=== PATIENT | female | born 1940 | race Caucasian/White ===

== ENCOUNTER 2019-03-29 05:43 | Emergency (ER) | payer MEDICARE ==
[~2019-03-29] VITALS: Ht 149.8 cm; Wt 75.3 kg
[~2019-03-29 05:43] MED LIST: ATENOLOL25 MG PO; KCL; METFORMIN HCL500 MG PO; PRAVASTATIN SOD10 MG PO
[2019-03-29] MEDS ORDERED: LEVOTHYROXINE50 MCG PO (05:58)
[2019-03-29] MEDS ORDERED: POTASSIUM CHLO20 ME4 PO (05:59)
[2019-03-29 06:59] VITALS: BP 159/63
== END 2019-03-29 06:57 | disposition short-term general hospital (02) ==
LOC: ED 05:43
DX: S06.4X0A Epidural hemorrhage without loss of consciousness, initial encounter (principal); M25.511 Pain in right shoulder; M25.512 Pain in left shoulder; R11.2 Nausea with vomiting, unspecified; Z79.899 Other long term (current) drug therapy; W18.39XA Other fall on same level, initial encounter; Y93.89 Activity, other specified; Y92.89 Other specified places as the place of occurrence of the external cause; Y99.8 Other external cause status

== ENCOUNTER 2023-04-10 20:30 | Emergency (ER) | payer MEDICARE ==
[~2023-04-10] VITALS: Ht 147.3 cm; Wt 70.3 kg
[~2023-04-10 20:30] MED LIST changes: +LEVOTHYROXINE50 MCG PO; +POTASSIUM CHLO20 ME4 PO
[2023-04-10 21:07] VITALS: BP 168/87
== END 2023-04-11 00:01 | disposition home or self-care (01) ==
LOC: ED 20:30
DX: S83.91XA Sprain of unspecified site of right knee, initial encounter (principal); I10 Essential (primary) hypertension; E11.9 Type 2 diabetes mellitus without complications; E78.00 Pure hypercholesterolemia, unspecified; Z98.890 Other specified postprocedural states; Z87.442 Personal history of urinary calculi; X58.XXXA Exposure to other specified factors, initial encounter; Y93.89 Activity, other specified; Y92.009 Unspecified place in unspecified non-institutional (private) residence as the place of occurrence of the external cause; Y99.8 Other external cause status

== ENCOUNTER 2025-04-01 19:19 | Emergency (ER) | payer MEDICARE ==
[~2025-04-01] VITALS: Ht 147.3 cm; Wt 68.0 kg
[2025-04-01 19:31] VITALS: BP 168/89
[2025-04-01] MEDS ORDERED: METHOCARBAMOL 500 MG TAB PO ONE (20:00)
[2025-04-01] MEDS ORDERED: METHOCARBAMOL500 M1 PO (20:29)
[2025-04-01] MEDS ORDERED: PREDNISONE20 M1 PO (20:29)
== END 2025-04-01 20:34 | disposition home or self-care (01) ==
LOC: ED 19:19
DX: S16.1XXA Strain of muscle, fascia and tendon at neck level, initial encounter (principal); E78.00 Pure hypercholesterolemia, unspecified; I10 Essential (primary) hypertension; E11.9 Type 2 diabetes mellitus without complications; X58.XXXA Exposure to other specified factors, initial encounter; Y93.89 Activity, other specified; Y92.89 Other specified places as the place of occurrence of the external cause; Y99.8 Other external cause status

== ENCOUNTER → 2025-04-27 | Outpatient (CLI) | payer MEDICARE ==
[~2025-04-27] MED LIST changes: +METHOCARBAMOL500 M1 PO; +PREDNISONE20 M1 PO
== END ==
LOC: MRI 08:51
PROVIDERS: ATTEND Orthopaedic Surgery
DX: M47.816 Spondylosis without myelopathy or radiculopathy, lumbar region (principal); M47.818 Spondylosis without myelopathy or radiculopathy, sacral and sacrococcygeal region; M47.812 Spondylosis without myelopathy or radiculopathy, cervical region; M51.369 Other intervertebral disc degeneration, lumbar region without mention of lumbar back pain or lower extremity pain; M48.062 Spinal stenosis, lumbar region with neurogenic claudication; M51.16 Intervertebral disc disorders with radiculopathy, lumbar region; M50.31 Other cervical disc degeneration, high cervical region; M51.86 Other intervertebral disc disorders, lumbar region